=== PATIENT | male | born 1975 | race Caucasian/White ===

== ENCOUNTER 2018-09-01 14:14 | Emergency (ER) | payer OTHER ==
[2018-09-01 15:27] LABS: BASO # 0.1 10^3/uL (0.0-0.2); EOS # 0.1 10^3/uL (0.0-0.50); EOS % 1.1 % (0.0-3.0); HEMATOCRIT 45.6 % (42.0-52.0); HEMOGLOBIN 16.3 g/dl (13.5-17.5); IMMATURE GRANULOCYTE % 0.8 % (0-3.0); LYMPH # 1.9 10^3/uL (1.5-4.5); LYMPH % 26.1 % (24.0-44.0); MEAN CORPUSCULAR HEMOGLOBIN 35.1 pg (27.0-33.0); MEAN CORPUSCULAR HGB CONC 35.7 g/dl (32.0-36.5); MEAN CORPUSCULAR VOLUME 98.3 fl (80.0-96.0); MONO # 0.6 10^3/uL (0.0-0.8); MONO % 8.9 % (0.0-5.0); NEUTROPHILS # 4.5 10^3/uL (1.8-7.7); NEUTROPHILS % 62.1 % (36.0-66.0); PLATELET COUNT, AUTOMATED 328 10^3/uL (150-450); RED BLOOD COUNT 4.64 10^6/uL (4.30-6.10); RED CELL DISTRIBUTION WIDTH 12.4 % (11.5-14.5); WHITE BLOOD COUNT 7.2 10^3/uL (4.0-10.0)
[2018-09-01] MEDS: ALPRAZolam 0.5 MG TAB PO (15:28)
[2018-09-01 15:53] LABS: ALBUMIN 4.1 GM/DL (3.2-5.2); ALBUMIN/GLOBULIN RATIO 1.32 (1.00-1.93); ALKALINE PHOSPHATASE 86 U/L (45-117); ALT/SGPT 32 U/L (12-78); ANION GAP 10 MEQ/L (8-16); AST/SGOT 29 U/L (7-37); BILIRUBIN,DIRECT < 0.1 MG/DL (0.0-0.2); BILIRUBIN,TOTAL 0.2 MG/DL (0.2-1.0); BLOOD UREA NITROGEN 7 MG/DL (7-18); CALCIUM LEVEL 9.5 MG/DL (8.5-10.1); CARBON DIOXIDE LEVEL 29 MEQ/L (21-32); CHLORIDE LEVEL 98 MEQ/L (98-107); CREATININE FOR GFR 0.76 MG/DL (0.70-1.30); ETHYL ALCOHOL (ETHANOL) 0.033 % (0.000-0.010); GLOMERULAR FILTRATION RATE > 60.0 (>60); GLUCOSE, FASTING 119 MG/DL (70-100); LIPASE 375 U/L (73-393); POTASSIUM SERUM 3.5 MEQ/L (3.5-5.1); SODIUM LEVEL 137 MEQ/L (136-145); TOTAL PROTEIN 7.2 GM/DL (6.4-8.2)
== END 2018-09-01 17:15 | disposition home or self-care (01) ==
LOC: M ED 14:14
DX: I10 Essential (primary) hypertension (principal); F41.9 Anxiety disorder, unspecified; F17.210 Nicotine dependence, cigarettes, uncomplicated
CPT/HCPCS: 93005

== ENCOUNTER → 2018-12-14 | Outpatient (REF) | payer OTHER ==
[~2018-12-14] MED LIST: HYDR50TAB; LOSA100T50; PARO25TA; POTA1TAB23
== END ==
LOC: M LAB REF 17:26
PROVIDERS: ATTEND Dermatology
DX: D48.5 Neoplasm of uncertain behavior of skin (principal)

== ENCOUNTER → 2018-12-14 | Outpatient (REF) | payer OTHER | LOC: M SFHCPLAZ 12:32 | PROVIDERS: ATTEND Dermatology | DX: Z53.9 Procedure and treatment not carried out, unspecified reason (principal); Z80.8 Family history of malignant neoplasm of other organs or systems ==

== ENCOUNTER → 2019-01-07 | Outpatient (REF) | payer OTHER | LOC: M SFHCPLAZ 12:33 | PROVIDERS: ATTEND Dermatology | DX: Z53.9 Procedure and treatment not carried out, unspecified reason (principal) ==

== ENCOUNTER → 2019-04-19 | Outpatient (CLI) | payer OTHER | LOC: M OUTALCOH 07:47 | PROVIDERS: ATTEND Psychiatry & Neurology Psychiatry | DX: Z13.39 Encounter for screening examination for other mental health and behavioral disorders (principal); F10.10 Alcohol abuse, uncomplicated ==

== ENCOUNTER 2019-05-14 10:56 | Outpatient (RCR) | payer OTHER | END 2019-05-22 | LOC: M OUTALCOH 10:56 | PROVIDERS: ATTEND Psychiatry & Neurology Psychiatry | DX: F10.10 Alcohol abuse, uncomplicated (principal); F17.200 Nicotine dependence, unspecified, uncomplicated ==

== ENCOUNTER 2019-06-20 11:00 | Outpatient (RCR) | payer OTHER | END 2019-06-22 | LOC: M OUTALCOH 11:00 | PROVIDERS: ATTEND Psychiatry & Neurology Psychiatry | DX: F10.10 Alcohol abuse, uncomplicated (principal); F17.200 Nicotine dependence, unspecified, uncomplicated ==

== ENCOUNTER → 2021-01-15 | Outpatient (CLI) | payer OTHER ==
[~2021-01-15] MED LIST changes: -PARO25TA; +PARO25TA8
--- NOTE | 2021-01-15 15:00 | REP ---
INDICATION: LIVER LESIONS. COMPARISON: MRI 07/22/2019, CT 10/24/2020, ultrasound 10/09/2020. TECHNIQUE: Multiple sequences obtained in the axial coronal planes prior to and following the intravenous administration of 15 cc ProHance. FINDINGS: In the right lobe of the liver there is again a hyperintense nodule identified which is 1.5 cm in diameter. This demonstrates enhancement characteristics compatible with a hemangioma. No other liver lesion is seen. The gallbladder is mildly distended. There are small subcentimeter nodules in the spleen. The 2 largest are hypointense on T2 weighted images there is not significant enhancement. Largest is 1 cm in diameter. These may represent complex nonenhancing cysts and are unchanged since the prior MRI exam. The adrenals, pancreas and kidneys appear unremarkable. The abdominal aorta is normal in caliber. There is no adenopathy or free fluid in the abdomen. IMPRESSION: Stable hemangioma right lobe of the liver. Two stable nodules in the spleen, the larger of the 2 is 1 cm in maximum diameter. These do not enhance and are compatible with benign entities. <Electronically signed by Justice Murguia > 01/15/21 [id number]
== END ==
LOC: M PLARAD 09:39
PROVIDERS: ATTEND Internal Medicine Gastroenterology
DX: D18.03 Hemangioma of intra-abdominal structures (principal); D73.89 Other diseases of spleen

== ENCOUNTER → 2023-05-16 | Outpatient (CLI) | payer OTHER ==
[~2023-05-16] MED LIST changes: +LOSA100T46; -LOSA100T50; +PARO25TA5; -PARO25TA8
== END ==
LOC: M CARPUL 13:41
PROVIDERS: ATTEND Registered Nurse
DX: I71.21 Aneurysm of the ascending aorta, without rupture (principal)